=== PATIENT | male | born 1945 | race Caucasian/White ===

== ENCOUNTER 2017-09-14 15:24 | Emergency (ER) | payer MEDICARE, BC ==
--- NOTE | 2017-09-14 16:12 | ED ---
Dhruv Green Rebecca, scribed for Balta Shah MD on 09/14/17 at 1554 . Complex/Multi-Sys Presentation - HPI Summary HPI Summary: Pt is a 72 y/o M who presents to ED after being instructed to do so due to an AAA leak. Three years ago, the pt had AAA repair surgery done by Dr. Oliver through [facility]. Approximately 3-4 weeks ago, the graft from the repair had a leak which was repaired. Pt reports the aneurysmal sac was repaired using clotting coils. Today, the pt was getting a follow up US to check the progress and it was visualized that he has another leak. At that point, radiology tried to contact Dr. Oliver which was unsuccessfully. After consulting with the pt' s PCP, it was recommended that he come to the ED for follow up. Currently, the pt denies any symptoms, including CP, SOB and abdominal pain. - History Of Current Complaint Chief Complaint: EDGeneral Time Seen by Provider: 09/14/17 15:37 Hx Obtained From: Patient Severity Currently: None Location: Negative Aggravating Factor(s): Nothing Alleviating Factor(s): Nothing Associated Signs And Symptoms: Positive: Other - Leaking AAA graft - Allergies/Home Medications Allergies/Adverse Reactions: Allergies Allergy/AdvReac Type Severity Reaction Status Date / Time No Known Allergies Allergy Verified 09/14/17 15:33 PMH/Surg Hx/FS Hx/Imm Hx Endocrine/Hematology History: Denies: Hx Diabetes, Hx Systemic Lupus Erythematosus Cardiovascular History: Reports: Hx Aneurysm - AAA, Hx Hypertension - MANAGED WITH MEDICATION, Hx Pacemaker/ICD - 08/12/14, Other Cardiovascular Problems/ Disorders - AAA REPAIR 2014 Denies: Hx Congestive Heart Failure Respiratory History: Reports: Hx Chronic Obstructive Pulmonary Disease (COPD) Denies: Hx Asthma History: Denies: Hx Renal Disease - Cancer History Hx Chemotherapy: No - Surgical History Surgery Procedure, Year, and Place: appendectomy 1966, AORTIC STENT PLACEMENT, ANGIOPLAST RT FEMORAL(FAILED), PACEMAKER, CORONARY STENT PLACEMENT,PRE CANCEROUS SKIN LESIONS REMOVED FROM RT HUMERUS Infectious Disease History: No Infectious Disease History: Denies: Traveled Outside the [place] in Last 30 Days - Family History Known Family History: Positive: Cardiac Disease - CAD - Social History Alcohol Use: Daily Alcohol Amount: 2-3 daily Substance Use Type: Reports: None Smoking Status (MU): Light Every Day Tobacco Smoker Type: Cigarettes Length of Time of Smoking/Using Tobacco: 50 years Review of Systems Positive: Other - Leaking AAA graft Negative: Chest Pain Negative: Shortness Of Breath Negative: Abdominal Pain All Other Systems Reviewed And Are Negative: Yes Physical Exam - Summary Physical Exam Summary: VITAL SIGNS: Reviewed. GENERAL: ~Patient is a well-developed and nourished male who is lying comfortable in the stretcher. ~Patient is not in any acute respiratory distress. HEAD AND FACE: No signs of trauma. ~No ecchymosis, hematomas or skull depressions. No sinus tenderness. EYES: PERRLA, EOMI x 2, No injected conjunctiva, no nystagmus. EARS: Hearing grossly intact. Ear canals and tympanic membranes are within normal limits. MOUTH: Oropharynx within normal limits. NECK: Supple, trachea is midline, no adenopathy, no JVD, no carotid bruit, no c- spine tenderness, neck with full ROM. CHEST: Symmetric, no tenderness at palpation LUNGS: Clear to auscultation bilaterally. No wheezing or crackles. CVS: Regular rate and rhythm, S1 and S2 present, no murmurs or gallops appreciated. ABDOMEN: Soft, non-tender. No signs of distention. No rebound no guarding, and no masses palpated. No abdominal bruits. Bowel sounds are normal. EXTREMITIES: FROM in all major joints, no edema, no cyanosis or clubbing. NEURO: Alert and oriented x 3. No acute neurological deficits. Speech is normal and follows commands. SKIN: Dry and warm Triage Information Reviewed: Yes Vital Signs On Initial Exam: Initial Vitals Temp Pulse Resp BP Pulse Ox 98.8 F 76 18 160/113 98 09/14/17 15:28 09/14/17 15:28 09/14/17 15:28 09/14/17 15:28 09/14/17 15:28 Vital Signs Reviewed: Yes Diagnostics - Vital Signs Vital Signs Temp Pulse Resp BP Pulse Ox 09/14/17 15:28 98.8 F 76 18 160/113 98 - Laboratory Lab Statement: Any lab studies that have been ordered have been reviewed, and results considered in the medical decision making process. Complex Multi-Symp Course/Dx Assessment/Plan: This patient is a 72-year-old male who has past medical history significant for malignant hypertension, AAA, peripheral vascular disease , syncope process to the emergency department after the patient was transferred from the radiology with a chief complaint of having a persistent endoleak which originates near the proximal aspect of the graft. Patient reports that he had an AAA repair through the endovascular process 3 years ago. However on April and 3 weeks ago the patient had an endoleak through the graft. [address] Oliver the vascular surgeon at [place] attempted to fix the endoleak. Today he was following up with an ultrasound and found again that the patient continues to have endoleak. The patient has no complaints, denies any headache dizziness chest pain riky over the palpitations. The patients blood pressure is increase in his mid hemodynamically stable. I discussed the case with Dr. Limon who is covering for Dr. Oliver he reports that since this is not an emergency, is not a rupture, he will request for the patient to be discharged to follow up with Dr. Oliver for further workup and management. Patient was given specific instructions that if he develops any weakness, decreased blood pressure, any abdominal pain, nausea vomiting he had to return immediately to the emergency room for further workup and management the patient understands and agrees. - Diagnoses Provider Diagnoses: Endoleak of aortic graft - Physician Notifications Discussed Care Of Patient With: Joey Esteban MD Time Discussed With Above Provider: 15:57 Instructed by Provider To: Other - Recommended that the pt be discharged home Discharge - Sign-Out/Discharge Documenting (check all that apply): Discharge/Admit/Transfer - Discharge - Discharge Plan Condition: Stable Disposition: HOME Patient Education Materials: Endovascular Aneurysm Repair of Abdominal Aorta ( DC) Referrals: Cachorro Greene DO [Primary Care Provider] - 3 Days Raghavendra Oliver MD [Medical Doctor] - 09/18/17 Additional Instructions: RETURN TO ED FOR ANY NEW OR RETURNING SYMPTOMS. - Billing Disposition and Condition Condition: STABLE Disposition: HOME The documentation as recorded by the Dhruv hadley Rebecca accurately reflects the service I personally performed and the decisions made by me, Balta Shah MD.
[2017-09-14 16:26] VITALS: BP 138/84
== END 2017-09-14 16:25 | disposition home or self-care (01) ==
LOC: ED 15:24
DX: T82.330A Leakage of aortic (bifurcation) graft (replacement), initial encounter (principal); F17.210 Nicotine dependence, cigarettes, uncomplicated; I10 Essential (primary) hypertension; I71.4 Abdominal aortic aneurysm, without rupture; I70.0 Atherosclerosis of aorta; I71.9 Aortic aneurysm of unspecified site, without rupture; I72.3 Aneurysm of iliac artery
CPT/HCPCS: 99282